=== PATIENT | female | born 1940 | race Caucasian/White ===

== ENCOUNTER 2017-09-01 10:58 | Emergency (ER) | payer MEDICARE ==
[2017-09-01 11:04] VITALS: RESP 18
[2017-09-01 12:02] LABS: Basophils % (A) 0 %; Eosinophils # (A) 0.2 k/uL (0-0.7); Eosinophils % (A) 3 %; HCT 41.7 % (34.0-46.0); HGB 13.9 gm/dL (11.4-16.0); Lymphocytes # (A) 2.3 k/uL (1.0-4.8); Lymphocytes % (A) 28 %; MCH 31.2 pg (25.0-35.0); MCHC 33.5 g/dL (31.0-37.0); MCV 93.3 fL (80.0-100.0); Mean Platelet Volume 7.4; Monocytes # (A) 0.4 k/uL (0-1.0); Monocytes % (A) 5 %; Neutrophils # (A) 5.2 k/uL (1.3-7.7); Neutrophils % (A) 63 %; Platelet Count 228 k/uL (150-450); RBC 4.47 m/uL (3.80-5.40); WBC 8.3 k/uL (3.8-10.6)
--- NOTE | 2017-09-01 12:08 | ED ---
General Adult HPI - General Chief complaint: Upper Respiratory Infection Stated complaint: CHEST CONSGESTION, BACK PAIN, COUGHING Time Seen by Provider: 09/01/17 11:16 Source: patient, RN notes reviewed Mode of arrival: wheelchair Limitations: no limitations - History of Present Illness Initial comments: Patient 76-year-old female presents into the emergency room today with a chief complaint cough congestion over the last 2 weeks. She does not that she followed up with family doctor was placed on antibiotics, steroids and a cough suppressant with no relief of the symptoms. She states she finished his medications 3 days ago. Patient does admit that yesterday she felt pain to her back coming from the chest. States when she coughs. When she coughs she experiences some pain. She states when she sitting still she has no pain she is pain-free. Patient denies any sputum production. She denies any other complaints or symptoms. Patient denies any recent fever, chills, shortness of breath, abdominal pain, nausea or vomiting, numbness or tingling, dysuria or hematuria, constipation or diarrhea, headaches or visual changes, or any other complaints. - Related Data Home Medications Medication Instructions Recorded Confirmed Aspirin [Adult Low Dose Aspirin EC] 81 mg PO BID 09/24/15 09/01/17 Atenolol [Tenormin] 50 mg PO DAILY 09/24/15 09/01/17 Calcium Carbonate/Vitamin D3 1 tab PO TID 09/24/15 09/01/17 [Calcium 600-Vit D3 400 Tablet] Levothyroxine Sodium [Synthroid] 88 mcg PO DAILY 09/24/15 09/01/17 Multivitamins, Thera [Multivitamin 1 tab PO DAILY 09/24/15 09/01/17 (formulary)] ALPRAZolam [Xanax] 0.25 mg PO DAILY PRN 02/24/16 09/01/17 Budesonide-Formot 160-4.5 Mcg 2 puff INHALATION RT-DAILY 02/24/16 09/01/17 [Symbicort 160-4.5 Mcg Inhaler] Fluticasone Nasal [place] [Flonase 2 spr EA NOSTRIL HS PRN 02/24/16 09/01/17 Nasal [place]] Clopidogrel [Plavix] 75 mg PO DAILY 09/01/17 09/01/17 Oxybutynin Chloride [Ditropan] 5 mg PO BID 09/01/17 09/01/17 Previous Rx's Medication Instructions Recorded Atorvastatin [Lipitor] 80 mg PO HS #30 tab 02/26/16 Losartan [Cozaar] 50 mg PO BID #60 tab 02/26/16 Nitroglycerin Sl Tabs [Nitrostat] 0.4 mg SUBLINGUAL Q5M PRN #25 tab 02/26/16 amLODIPine [Norvasc] 5 mg PO DAILY #30 tab 02/26/16 Albuterol Inhaler [Ventolin Hfa 1 - 2 puff INHALATION Q4-6H PRN #1 09/01/17 Inhaler] inhaler predniSONE 50 mg PO DAILY #5 tab 09/01/17 Allergies Allergy/AdvReac Type Severity Reaction Status Date / Time No Known Allergies Allergy Verified 09/01/17 11:35 Review of Systems ROS Statement: Those systems with pertinent positive or pertinent negative responses have been documented in the HPI. ROS Other: All systems not noted in ROS Statement are negative. Past Medical History Past Medical History: Deep Vein Thrombosis (DVT), Hyperlipidemia, Hypertension, Osteoarthritis (OA), Thyroid Disorder Additional Past Medical History / Comment(s): hiatal hernia, scratch on rt leg, urinary leakage, hiatal hernia, osteoporosis, History of Any Multi-Drug Resistant Organisms: None Reported Past Surgical History: Appendectomy, Bladder Surgery, Hernia Repair, Hysterectomy, Orthopedic Surgery Additional Past Surgical History / Comment(s): rt wrist carpal tunnel, rectocele , bladder suspension, left carotid endarterectomy, tawny cataracts, breast bx, Past Anesthesia/Blood Transfusion Reactions: No Reported Reaction Past Psychological History: No Psychological Hx Reported Smoking Status: Former smoker Past Alcohol Use History: Occasional Past Drug Use History: None Reported - Past Family History Daughter(s) Family Medical History: Cancer Mother Family Medical History: Cancer, Myocardial Infarction ([place]) Additional Family Medical History / Comment(s): lung disease Father Family Medical History: Diabetes Mellitus, Myocardial Infarction ([place]) Additional Family Medical History / Comment(s): at age 47 mi General Exam - General Exam Comments Initial Comments: General: The patient is awake and alert, in no distress, and does not appear acutely ill. Eye: Pupils are equal, round and reactive to light, extra-ocular movements are intact. No nystagmus. There is normal conjunctiva bilaterally. No signs of icterus. Ears, nose, mouth and throat: There are moist mucous membranes and no oral lesions. Neck: The neck is supple, there is no tenderness or JVD. Cardiovascular: There is a regular rate and rhythm. No murmur, rub or gallop is appreciated. Respiratory: Lungs are clear to auscultation, respirations are non-labored, breath sounds are equal. No wheezes, stridor, rales, or rhonchi. Musculoskeletal: Normal ROM, no tenderness. Strength 5/5. Sensation intact. Pulses equal bilaterally 2+. Neurological: A&O x 3. CN II-XII intact, There are no obvious motor or sensory deficits. Coordination appears grossly intact. Speech is normal. Skin: Skin is warm and dry and no rashes or lesions are noted. Psychiatric: Cooperative, appropriate mood & affect, normal judgment. Limitations: no limitations Course Vital Signs 09/01/17 09/01/17 09/01/17 11:00 13:12 13:23 Temperature 98 F Pulse Rate 71 72 76 Respiratory 18 Rate Blood Pressure 131/72 O2 Sat by Pulse 95 Oximetry EKG Findings - EKG Comments: EKG Findings:: EKG performed at 1143: Shows normal sinus rhythm at 60 bpm. MO interval 148. QRS 86. QT/QTc 432/432. Acute ST changes. Medical Decision Making - Medical Decision Making Patient reexamined at this time shows no signs of distress. She does not that she's had cough congestion for the past 2 weeks.Production. Patient does have recall. She's had coughing bouts at home. Patient states that only having pain when she coughs. No other complaints at this time. Breathing treatment did give her some improvement here in the emergency room. Her chest x-ray is negative for any sign of pneumonia. No other abnormalities. EKG shows normal sinus rhythm. Patient's labs reviewed unremarkable. Patient will be discharged home. Patient will be given a albuterol inhaler and also steroids for home with advise follow-up over the next 2 days return here to the emergency room symptoms increase or worsen or for any other concerns. - Lab Data Result diagrams: 09/01/17 11:53 09/01/17 11:53 Lab Results 09/01/17 09/01/17 09/01/17 Range/Units 11:53 11:53 11:53 WBC 8.3 (3.8-10.6) k/uL RBC 4.47 (3.80-5.40) m/uL Hgb 13.9 (11.4-16.0) gm/dL Hct 41.7 (34.0-46.0) % MCV 93.3 (80.0-100.0) fL MCH 31.2 (25.0-35.0) pg MCHC 33.5 (31.0-37.0) g/dL RDW 13.0 (11.5-15.5) % Plt Count 228 (150-450) k/uL Neutrophils % 63 % Lymphocytes % 28 % Monocytes % 5 % Eosinophils % 3 % Basophils % 0 % Neutrophils # 5.2 (1.3-7.7) k/uL Lymphocytes # 2.3 (1.0-4.8) k/uL Monocytes # 0.4 (0-1.0) k/uL Eosinophils # 0.2 (0-0.7) k/uL Basophils # 0.0 (0-0.2) k/uL PT (9.0-12.0) sec INR (<1.2) APTT (22.0-30.0) sec Sodium 143 (137-145) mmol/L Potassium 4.2 (3.5-5.1) mmol/L Chloride 107 (98-107) mmol/L Carbon Dioxide 25 (22-30) mmol/L Anion Gap 11 mmol/L BUN 23 H (7-17) mg/dL Creatinine 0.93 (0.52-1.04) mg/dL Est GFR (CKD-EPI)AfAm 70 (>60 ml/min/1.73 sqM) Est GFR (CKD-EPI)NonAf 60 (>60 ml/min/1.73 sqM) Glucose 94 (74-99) mg/dL Calcium 8.8 (8.4-10.2) mg/dL Total Bilirubin 0.7 (0.2-1.3) mg/dL AST 24 (14-36) U/L ALT 29 (9-52) U/L Alkaline Phosphatase 64 (38-126) U/L Total Creatine Kinase 45 (30-135) U/L CK-MB (CK-2) 1.5 (0.0-2.4) ng/mL CK-MB (CK-2) Rel Index 3.3 Troponin I <0.012 (0.000-0.034) ng/mL Total Protein 6.0 L (6.3-8.2) g/dL Albumin 3.7 (3.5-5.0) g/dL 09/01/17 Range/Units 11:53 WBC (3.8-10.6) k/uL RBC (3.80-5.40) m/uL Hgb (11.4-16.0) gm/dL Hct (34.0-46.0) % MCV (80.0-100.0) fL MCH (25.0-35.0) pg MCHC (31.0-37.0) g/dL RDW (11.5-15.5) % Plt Count (150-450) k/uL Neutrophils % % Lymphocytes % % Monocytes % % Eosinophils % % Basophils % % Neutrophils # (1.3-7.7) k/uL Lymphocytes # (1.0-4.8) k/uL Monocytes # (0-1.0) k/uL Eosinophils # (0-0.7) k/uL Basophils # (0-0.2) k/uL PT 10.1 (9.0-12.0) sec INR 1.0 (<1.2) APTT 22.6 (22.0-30.0) sec Sodium (137-145) mmol/L Potassium (3.5-5.1) mmol/L Chloride (98-107) mmol/L Carbon Dioxide (22-30) mmol/L Anion Gap mmol/L BUN (7-17) mg/dL Creatinine (0.52-1.04) mg/dL Est GFR (CKD-EPI)AfAm (>60 ml/min/1.73 sqM) Est GFR (CKD-EPI)NonAf (>60 ml/min/1.73 sqM) Glucose (74-99) mg/dL Calcium (8.4-10.2) mg/dL Total Bilirubin (0.2-1.3) mg/dL AST (14-36) U/L ALT (9-52) U/L Alkaline Phosphatase (38-126) U/L Total Creatine Kinase (30-135) U/L CK-MB (CK-2) (0.0-2.4) ng/mL CK-MB (CK-2) Rel Index Troponin I (0.000-0.034) ng/mL Total Protein (6.3-8.2) g/dL Albumin (3.5-5.0) g/dL Disposition Clinical Impression: Bronchospasm Disposition: HOME SELF-CARE Condition: Good Instructions: Bronchospasm (ED) Additional Instructions: Please use medication as discussed. Please follow-up with family doctor in the next 2 days of symptoms have not improved. Please return to emergency room if the symptoms increase or worsen or for any other concerns. Prescriptions: Albuterol Inhaler [Ventolin Hfa Inhaler] 1 - 2 puff INHALATION Q4-6H PRN #1 inhaler PRN Reason: Cough predniSONE 50 mg PO DAILY #5 tab Is patient prescribed a controlled substance at d/c from ED?: No Referrals: Joaquin Mccurdy MD [Primary Care Provider] - 1-2 days Time of Disposition: 14:01
--- NOTE | 2017-09-01 12:12 | XR ---
EXAMINATION TYPE: XR chest 2V DATE OF EXAM: 09/01/2017 COMPARISON: Chest x-ray February 24, 2016 HISTORY: Cough and congestion. TECHNIQUE: Frontal and lateral views of the chest are obtained. FINDINGS: There is chronic parenchymal change without suspicious focal air space opacity, pleural ef fusion, or pneumothorax seen. The cardiac silhouette size is stable and upper limits of normal with atherosclerotic change in thoracic aorta. The osseous structures are intact. IMPRESSION: Chronic changes without acute pulmonary process.
[2017-09-01 12:17] LABS: Albumin 3.7 g/dL (3.5-5.0); Calcium 8.8 mg/dL (8.4-10.2); Potassium 4.2 mmol/L (3.5-5.1); Total Bilirubin 0.7 mg/dL (0.2-1.3)
[2017-09-01 12:26] LABS: Creatine Kinase 45 U/L (30-135)
[2017-09-01 12:30] LABS: Partial Thromboplastin Time 22.6 sec (22.0-30.0); Prothrombin Time 10.1 sec (9.0-12.0)
[2017-09-01 12:40] LABS: Creatine Kinase MB 1.5 ng/mL (0.0-2.4); Troponin I <0.012 ng/mL (0.000-0.034)
[2017-09-01] MEDS ORDERED: IPRATROPIUM-ALBUTEROL 3 ML NEB INHALATION STA (12:55)
[2017-09-01 14:50] VITALS: BP 141/76; PULSE 68; TEMP 98.5
== END 2017-09-01 14:20 | disposition home or self-care (01) ==
LOC: EC 10:58
DX: J98.01 Acute bronchospasm (principal); M54.9 Dorsalgia, unspecified; E78.5 Hyperlipidemia, unspecified; I10 Essential (primary) hypertension; E07.9 Disorder of thyroid, unspecified; Z87.891 Personal history of nicotine dependence; Z79.01 Long term (current) use of anticoagulants; Z79.51 Long term (current) use of inhaled steroids; Z79.899 Other long term (current) drug therapy; Z79.82 Long term (current) use of aspirin; Z86.718 Personal history of other venous thrombosis and embolism; Z83.6 Family history of other diseases of the respiratory system
CPT/HCPCS: 36415; 71046; 80053; 82550; 82553; 84484; 85025; 85610; 85730; 93005; 94640; 99284

== ENCOUNTER → 2022-05-11 | Day surgery (SDC) | payer MEDICARE ==
[2022-05-06 14:22] VITALS: BMI 25.8
[~2022-05-11] MED LIST: ALPRAZolam 0.25 MG TAB PO PRN; ALPRAZolam 0.5 MG TAB PO PRN; ASPIRIN 325 MG TAB PO STA; ASPIRIN 81 MG PO SCH; ATORVASTATIN 40 MG TAB PO SCH; ATORVASTATIN 80 MG TAB PO STA; CALCIUM CARB-VIT D 500 MG-5 MCG TAB PO SCH; CHOLECALCIFEROL 125 MCG (5000 IU) TABLET PO SCH; ESTER C PO SCH; EZETIMIBE 10 MG TAB PO SCH; FLUTICASONE 50MCG/SPRAY NASAL 16GM EA NOSTRIL PRN; HEPARIN SODIUM 1,000 UN/ML (10ML VL) IVP ONE; HEPARIN SODIUM 1,000 UN/ML (10ML VL) ONE; HEPARIN SODIUM,PORCINE 10,000 UNIT in SODIUM CHLORIDE 0.9% 1,000 ML IRRIGATION PRN; HEPARIN SODIUM,PORCINE 2,500 UNIT in SODIUM CHLORIDE 0.9% 250 ML IRRIGATION PRN; IOPAMIDOL-370 125ML BTL INJ ONE; LEVOTHYROXINE 88 MCG TAB PO SCH; LIDOCAINE 1% INJ 10MG/ML (30 ML VIAL-PF) SQ ONE; LOSARTAN 50 MG TAB PO SCH; MONTELUKAST 10 MG TAB PO SCH; MULTIVITAMINS, THERA 1 EACH TAB PO SCH; NITROGLYCERIN SL TABS 0.4 MG TAB SUBLINGUAL PRN; OXYBUTYNIN CHLORIDE 5 MG TAB PO SCH; RX INFO: IV CONTRAST WAS GIVEN 1 EACH MISC MISCELLANE PRN; SODIUM CHLORIDE 0.9% 1,000 ML IV ONE; SODIUM CHLORIDE 0.9% 1,000 ML IV SCH; SODIUM CHLORIDE 0.9% 1,000 ML in EMPTY BAG 1 BAG IV SCH; SYMBICORT 160-4.5 MCG INHALER INHALATION PRN; VERAPAMIL 2.5 MG/ML 2 ML AMP ONE; ZINC SULFATE 220 MG CAP PO SCH; amLODIPine 5 MG TAB PO SCH; atenoloL 50 MG TAB PO SCH; fentaNYL (PF) 50 MCG/ML 2 ML AMP IVP ONE; fentaNYL (PF) 50 MCG/ML 2 ML AMP ONE
[2022-05-11 06:36] VITALS: RESP 16; TEMP 98.7
[2022-05-11 06:43] LABS: Basophils # (A) 0.1 k/uL (0-0.2); Basophils % (A) 1 %; Eosinophils # (A) 0.2 k/uL (0-0.7); Eosinophils % (A) 4 %; HGB 14.7 gm/dL (11.4-16.0); Lymphocytes # (A) 2.1 k/uL (1.0-4.8); Lymphocytes % (A) 38 %; MCH 32.4 pg (25.0-35.0); MCHC 34.1 g/dL (31.0-37.0); MCV 94.8 fL (80.0-100.0); Mean Platelet Volume 7.7; Monocytes # (A) 0.3 k/uL (0-1.0); Monocytes % (A) 6 %; Neutrophils # (A) 2.8 k/uL (1.3-7.7); Neutrophils % (A) 50 %; Platelet Count 228 k/uL (150-450); RBC 4.54 m/uL (3.80-5.40); RDW 12.7 % (11.5-15.5); WBC 5.6 k/uL (3.8-10.6)
[2022-05-11 06:54] LABS: Calcium 9.8 mg/dL (8.4-10.2); Potassium 4.2 mmol/L (3.5-5.1)
--- NOTE | 2022-05-11 08:02 | P.CARDCATH ---
Date of Procedure: 05/11/22 Description of Procedure: Cardiac Catheterization: The patient is an 81-year-old female with history of hypertension, hyperlipidemia and prior PCI who has been complaining of chest discomfort. She had an abnormal MPI. Recommendations were made regarding cardiac catheterization, the risks and the complications were discussed with the patient who is in full understanding and agreement. Procedure Description: Patient was brought to senior label specialist in fasting semi-sedated state after receiving Fentanyl and Benadryl achieiving moderate conscious sedated state. Using Xylocaine Anesthesia and Seldinger technique, a 6-[place]iopian sheath was introduced in the right radial artery . Subsequently, selective coronary angiography was performed using a 5-Ethiopian 3.5 bend Phillip catheter. Multiple views of the coronary artery including hemiaxial views were obtained. The 5-Ethiopian pigtail catheter was used to cross the aortic valve and LVEDP was calculated. Following that, catheter and sheath were removed. Hemostasis was obtained with deployment of TR band . There was no immediate complication. Patient was returned to room in stable condition. Of note, the patient received a total of 4000 units of intravenous heparin as well as intra-arterial verapamil. Findings: Fluoroscopy: Calcifications involving the LAD, left circumflex and RCA were noted Left main: This is a large size vessel, bifurcating into LAD and left circumflex, the distal left main has a 20% plaque LAD: This is a large size vessel, calcified, reaching to the apex, giving rise to 3 diagonal branch of small to moderate caliber, the LAD has mild disease of 10-20% with no high-grade stenosis Left circumflex: This is a large nondominant vessel, giving rise to 3 obtuse marginal branch. The left circumflex has mild intimal disease of 20% throughout its course with no high-grade stenosis RCA: This is a large dominant vessel, bifurcating distally to the PDA and PLV. The proximal RCA has a 30% plaque, the stented segment beyond that is patent with no significant in-stent restenosis Left Ventriculogram: There was no gradient across the aortic valve Hemodynamics: Was not performed , LVEDP was 14-16 mmHg Conclusion: 1. Calcified coronary arteries 2. Patent RCA stent 3. Mild disease in the RCA, LAD and left circumflex 4. Right dominance Recommendations: I have recommended to continue medical therapy with the aggressive coronary risks modifications. The findings and the recommendations were discussed with the patient and the family and they were in full understanding and agreement. Duration of sedation is 16 minutes.
[2022-05-11 12:09] VITALS: BP 131/60; PULSE 60
== END | disposition home or self-care (01) ==
LOC: CATHCVL 05:57
PROVIDERS: ATTEND Internal Medicine Interventional Cardiology
DX: I25.10 Atherosclerotic heart disease of native coronary artery without angina pectoris (principal); Z95.5 Presence of coronary angioplasty implant and graft; I10 Essential (primary) hypertension; E78.5 Hyperlipidemia, unspecified; R92.1 Mammographic calcification found on diagnostic imaging of breast; Z79.82 Long term (current) use of aspirin; Z79.02 Long term (current) use of antithrombotics/antiplatelets; I99.8 Other disorder of circulatory system; F17.210 Nicotine dependence, cigarettes, uncomplicated; Z82.49 Family history of ischemic heart disease and other diseases of the circulatory system; I73.9 Peripheral vascular disease, unspecified; F10.20 Alcohol dependence, uncomplicated; Z98.890 Other specified postprocedural states; E78.00 Pure hypercholesterolemia, unspecified; Z79.899 Other long term (current) drug therapy; Z79.891 Long term (current) use of opiate analgesic; Z79.810 Long term (current) use of selective estrogen receptor modulators (SERMs)
CPT/HCPCS: 93458; 80048; 85025; C1769 ×2; C1894; J2001; J3010; J1644; Q9967

== ENCOUNTER → 2023-01-07 | Outpatient (CLI) | payer MEDICARE ==
--- NOTE | 2023-01-11 08:09 | MM ---
Reason for Exam: Screening (asymptomatic). Last mammogram was performed 4 year(s) and 0 month(s) ago. Patient History: Menarche at age 13. First Full-Term at age 18. Left ovary removed at age 37. Right ovary removed at age 37. Hysterectomy at age 37. Postmenopausal. 1979, Excisional Biopsy on the Left side. Excisional Biopsy on the Left side. Risk Values: Candy 5 year model risk: 1.7%. NCI Lifetime model risk: 2.3%. Tissue Density: The breast tissue is heterogeneously dense. This may lower the sensitivity of mammography. Findings: Analyzed By CAD. There is no suspicious group of microcalcifications or new suspicious mass. Benign-appearing calcifications bilaterally. Overall Assessment: Benign, BI-RAD 2 Management: Screening Mammogram of both breasts in [address] [facility] will attempt to contact patient to return for supplemental views and ultrasound if indicated. Patient should continue monthly self-breast exams. A clinical breast exam by your physician is recommended on an annual basis. This exam should not preclude additional follow-up of suspicious palpable abnormalities. Note on Candy scores and lifetime risk: 1. A Candy score greater than 3% is considered moderate risk. If this is the case, consider specialist referral to assess eligibility for a risk reducing agent. 2. If overall lifetime risk for the development of breast cancer is 20% or higher, the patient may qualify for future screening with alternating mammogram and breast MRI. Electronically signed and approved by: Nadeem Sanchez DO
== END | disposition home or self-care (01) ==
LOC: RADMAMWWP 16:21
PROVIDERS: ATTEND Family Medicine
DX: Z12.31 Encounter for screening mammogram for malignant neoplasm of breast (principal); Z78.0 Asymptomatic menopausal state
CPT/HCPCS: 77063; 77067

== ENCOUNTER 2023-04-16 11:20 | Emergency (ER) | payer MEDICARE ==
[2023-04-16 12:12] VITALS: TEMP 98.4
--- NOTE | 2023-04-16 12:40 | CT ---
EXAMINATION TYPE: CT brain wo con DATE OF EXAM: 04/16/2023 COMPARISON: None available. HISTORY: Trauma. CT DLP: 1095.4 mGycm Automated exposure control for dose reduction was used. FINDINGS: There is no acute intracranial hemorrhage, mass, mass effect, midline shift, extra-axial fluid collec tion or hydrocephalus. There is mild hypoattenuation the periventricular white matter which likely relates to chronic ischem ic small vessel change. The brady-white distinction is otherwise intact without evidence of an acute m ajor vessel infarct. There is a small amount of soft tissue swelling in the right frontal parietal region. IMPRESSION: 1. NO ACUTE INTRACRANIAL PROCESS. 2. MILD SOFT TISSUE SWELLING IN THE RIGHT FRONTAL PARIETAL REGION
--- NOTE | 2023-04-16 12:45 | ED ---
Head Injury HPI - General Chief complaint: Head Injury Stated complaint: head injury Time Seen by Provider: 04/16/23 11:41 Source: patient, RN notes reviewed Mode of arrival: ambulatory Limitations: no limitations - History of Present Illness Initial comments: 8-year-old female sent emergency Department chief complaint of a head injury. Patient states that she was getting a office shelf high above her. She states it rolled off striking her head and she states is a metal cooking pot. Patient states that she has bruising, pain in her frontal aspect of her head. - Related Data Home Medications Medication Instructions Recorded Confirmed Aspirin [Adult Low Dose Aspirin EC] 81 mg PO BID 09/24/15 05/11/22 Calcium Carbonate/Vitamin D3 600 mg PO BID 09/24/15 05/11/22 [Calcium 600-Vit D3 400 Tablet] Levothyroxine Sodium [Synthroid] 88 mcg PO DAILY 09/24/15 05/11/22 Multivitamins, Thera [Multivitamin 1 tab PO DAILY 09/24/15 05/11/22 (formulary)] atenoloL [Tenormin] 50 mg PO DAILY 09/24/15 05/11/22 ALPRAZolam [Xanax] 0.25 mg PO DAILY PRN 02/24/16 05/06/22 Budesonide-Formot 160-4.5 Mcg 2 puff INHALATION RT-DAILY PRN 02/24/16 05/06/22 [Symbicort 160-4.5 Mcg Inhaler] Fluticasone Nasal [place] [Flonase 2 spr EA NOSTRIL HS PRN 02/24/16 05/06/22 Nasal [place]] oxyBUTYnin chloride [Ditropan] 5 mg PO BID 09/01/17 05/11/22 Atorvastatin [Lipitor] 40 mg PO HS 05/06/22 05/11/22 Cholecalciferol [Vitamin D3 (25 125 mcg PO DAILY 05/06/22 05/11/22 Mcg = 1000 Iu)] Katie C 1 tab PO DAILY 05/06/22 05/11/22 Ezetimibe [Zetia] 10 mg PO DAILY 05/06/22 05/11/22 Montelukast Sodium [Singulair] 10 mg PO HS 05/06/22 05/11/22 Zinc Gluconate [Zinc] 25 mg PO DAILY 05/06/22 05/11/22 amLODIPine [Norvasc] 5 mg PO BID 05/06/22 05/11/22 Previous Rx's Medication Instructions Recorded Losartan [Cozaar] 50 mg PO BID #60 tab 02/26/16 Nitroglycerin Sl Tabs [Nitrostat] 0.4 mg SUBLINGUAL Q5M PRN #25 tab 02/26/16 Allergies/Adverse reactions: Allergies Allergy/AdvReac Type Severity Reaction Status Date / Time No Known Allergies Allergy Verified 04/16/23 11:30 Review of Systems ROS Statement: Those systems with pertinent positive or pertinent negative responses have been documented in the HPI. ROS Other: All systems not noted in ROS Statement are negative. Past Medical History Past Medical History: Coronary Artery Disease (CAD), Deep Vein Thrombosis (DVT), Hyperlipidemia, Hypertension, Myocardial Infarction ([place]), Osteoarthritis (OA), Thyroid Disorder Additional Past Medical History / Comment(s): recent chest pain, hiatal hernia, urinary leakage, hiatal hernia, osteoporosis, dvt leg 60 yrs ago. Last Myocardial Infarction Date:: 2015 History of Any Multi-Drug Resistant Organisms: None Reported Past Surgical History: Appendectomy, Bladder Surgery, Heart Catheterization With Stent, Hernia Repair, Hysterectomy, Orthopedic Surgery Additional Past Surgical History / Comment(s): rt wrist carpal tunnel, rectocele, bladder suspension, left carotid endarterectomy, tawny cataracts, breast bx,heart stents x2 Past Anesthesia/Blood Transfusion Reactions: No Reported Reaction Additional Past Anesthesia/Blood Transfusion Reaction / Comment(s): no hx blood transfusion Date of Last Stent Placement:: 2015 Past Psychological History: No Psychological Hx Reported Smoking Status: Former smoker Past Alcohol Use History: None Reported Past Drug Use History: None Reported - Past Family History Daughter(s) Family Medical History: Cancer Additional Family Medical History / Comment(s): past away with CA at age 36. #2 dtr had CABG at age 63-3 vessels Mother Family Medical History: Cancer, Myocardial Infarction ([place]) Additional Family Medical History / Comment(s): lung disease Father Family Medical History: Diabetes Mellitus, Myocardial Infarction ([place]) Additional Family Medical History / Comment(s): at age 47 mi Brother(s) Additional Family Medical History / Comment(s): at age 51 unk cause General Exam Limitations: no limitations General appearance: alert, in no apparent distress Head exam: Present: atraumatic, normocephalic. Absent: normal inspection (Right frontal ecchymosis noted) Eye exam: Present: normal appearance, PERRL, EOMI. Absent: scleral icterus, conjunctival injection, periorbital swelling ENT exam: Present: normal exam, normal oropharynx, mucous membranes moist Neck exam: Present: normal inspection, full ROM. Absent: tenderness, meningismus, lymphadenopathy Respiratory exam: Present: normal lung sounds bilaterally. Absent: respiratory distress, wheezes, rales, rhonchi, stridor Cardiovascular Exam: Present: regular rate, normal rhythm, normal heart sounds. Absent: systolic murmur, diastolic murmur, rubs, gallop, clicks Course Vital Signs 04/16/23 11:27 Temperature 98.4 F Pulse Rate 72 Respiratory 20 Rate Blood Pressure 154/71 O2 Sat by Pulse 96 Oximetry Medical Decision Making - Medical Decision Making Was pt. sent in by a medical professional or institution (, PA, STEAM OVEN OPERATOR, urgent care, hospital, or halfway...) When possible be specific @ -No Did you speak to anyone other than the patient for history (EMS, parent, family, police, friend...)? What history was obtained from this source @ -No Did you review nursing and triage notes (agree or disagree)? Why? @ -I reviewed and agree with nursing and triage notes Were old charts reviewed (outside hosp., previous admission, EMS record, old EKG, old radiological studies, urgent care reports/EKG's, halfway records)? Report findings @ -No old charts were reviewed Differential Diagnosis (chest pain, altered mental status, abdominal pain women, abdominal pain men, vaginal bleeding, weakness, fever, dyspnea, syncope, headache, dizziness, GI bleed, back pain, seizure, CVA, palpatations, mental health, musculoskeletal)? @ -Scalp contusion, closed head injury EKG interpreted by me (3pts min.). @ -None X-rays interpreted by me (1pt min.). @ -None done CT interpreted by me (1pt min.). @ -CT brain shows no acute intracranial hemorrhage there is soft tissue swelling noted U/S interpreted by me (1pt. min.). @ -None done What testing was considered but not performed or refused? (CT, X-rays, U/S, labs)? Why? @ -None What meds were considered but not given or refused? Why? @ -None Did you discuss the management of the patient with other professionals (professionals i.e. , PA, STEAM OVEN OPERATOR, lab, RT, psych nurse, social media sr strategy manager, manager news, teacher, chief fundraising officer, family caseworker)? Give summary @ -No Was smoking cessation discussed for >3mins.? @ -No Was critical care preformed (if so, how long)? @ -No Were there social determinants of health that impacted care today? How? (Homelessness, low income, unemployed, alcoholism, drug addiction, transportation, low edu. Level, literacy, decrease access to med. care, custodial, rehab)? @ -No Was there de-escalation of care discussed even if they declined (Discuss DNR or withdrawal of care, Hospice)? DNR status @ -No What co-morbidities impacted this encounter? (DM, HTN, Smoking, COPD, CAD, Cancer, CVA, ARF, Chemo, Hep., AIDS, mental health diagnosis, sleep apnea, morbid obesity)? @ -None Was patient admitted / discharged? Hospital course, mention meds given and route, prescriptions, significant lab abnormalities, going to OR and other pertinent info. @ -Discharge CT was negative for intracranial hemorrhage patient is discharged in stable condition she is not intact. Undiagnosed new problem with uncertain prognosis? @ -No Drug Therapy requiring intensive monitoring for toxicity (Heparin, Nitro, Insulin, Cardizem)? @ -No Were any procedures done? @ -No Diagnosis/symptom? @ -Scalp contusion Acute, or Chronic, or Acute on Chronic? @ -Acute Uncomplicated (without systemic symptoms) or Complicated (systemic symptoms)? @ -Uncomplicated. Side effects of treatment? @ -No Exacerbation, Progression, or Severe Exacerbation? @ -No Poses a threat to life or bodily function? How? (Chest pain, [place], [place], pneumonia, PE, COPD, DKA, ARF, appy, cholecystitis, CVA, Diverticulitis, Homicidal, Suicidal, threat to staff... and all critical care pts) @ -No Disposition Clinical Impression: Contusion of scalp Disposition: HOME SELF-CARE Condition: Stable Instructions (If sedation given, give patient instructions): Head Injury (ED) Additional Instructions: Please return to the Emergency Department if symptoms worsen or any other concerns. Is patient prescribed a controlled substance at d/c from ED?: No Referrals: Joaquin Mccurdy MD [Primary Care Provider] - 1-2 days Time of Disposition: 12:45
[2023-04-16 13:27] VITALS: BP 157/72; PULSE 70; RESP 16
== END 2023-04-16 13:09 | disposition home or self-care (01) ==
LOC: EC 11:20
DX: S00.03XA Contusion of scalp, initial encounter (principal); I25.10 Atherosclerotic heart disease of native coronary artery without angina pectoris; E78.5 Hyperlipidemia, unspecified; I10 Essential (primary) hypertension; I25.2 Old myocardial infarction; M19.90 Unspecified osteoarthritis, unspecified site; Z87.891 Personal history of nicotine dependence; Z79.82 Long term (current) use of aspirin; Z79.1 Long term (current) use of non-steroidal anti-inflammatories (NSAID); Z79.890 Hormone replacement therapy; W22.8XXA Striking against or struck by other objects, initial encounter
CPT/HCPCS: 70450; 99283

== ENCOUNTER 2024-01-01 20:59 | Emergency (ER) | payer MEDICARE ==
[2024-01-01 21:14] VITALS: RESP 18; TEMP 98
--- NOTE | 2024-01-01 21:48 | ED ---
Fall HPI - General Chief Complaint: Fall Stated Complaint: Fall-left shoulder injury Time Seen by Provider: 01/01/24 21:47 Source: patient Mode of arrival: ambulatory - History of Present Illness Initial Comments: 83-year-old female presenting for evaluation post fall. Patient tripped on her 's oxygen at home and fell onto her right arm. She is having shoulder and wrist pain. She also has a hematoma and superficial laceration to the right forearm. Does not know when her last tetanus shot was. She did hit her head but states she had no loss of consciousness. She is on no blood thinners. No nausea, vomiting, dizziness, chest pain, difficulty breathing, headache, neck pain, numbness, tingling, weakness - Related Data Home Medications Medication Instructions Recorded Confirmed Aspirin [Adult Low Dose Aspirin EC] 81 mg PO BID 09/24/15 05/11/22 Calcium Carbonate/Vitamin D3 600 mg PO BID 09/24/15 05/11/22 [Calcium 600-Vit D3 400 Tablet] Levothyroxine Sodium [Synthroid] 88 mcg PO DAILY 09/24/15 05/11/22 Multivitamins, Thera [Multivitamin 1 tab PO DAILY 09/24/15 05/11/22 (formulary)] atenoloL [Tenormin] 50 mg PO DAILY 09/24/15 05/11/22 ALPRAZolam [Xanax] 0.25 mg PO DAILY PRN 02/24/16 05/06/22 Budesonide-Formot 160-4.5 Mcg 2 puff INHALATION RT-DAILY PRN 02/24/16 05/06/22 [Symbicort 160-4.5 Mcg Inhaler] Fluticasone Nasal [place] [Flonase 2 spr EA NOSTRIL HS PRN 02/24/16 05/06/22 Nasal [place]] oxyBUTYnin chloride [Ditropan] 5 mg PO BID 09/01/17 05/11/22 Atorvastatin [Lipitor] 40 mg PO HS 05/06/22 05/11/22 Cholecalciferol [Vitamin D3 (25 125 mcg PO DAILY 05/06/22 05/11/22 Mcg = 1000 Iu)] Katie C 1 tab PO DAILY 05/06/22 05/11/22 Ezetimibe [Zetia] 10 mg PO DAILY 05/06/22 05/11/22 Montelukast Sodium [Singulair] 10 mg PO HS 05/06/22 05/11/22 Zinc Gluconate [Zinc] 25 mg PO DAILY 05/06/22 05/11/22 amLODIPine [Norvasc] 5 mg PO BID 05/06/22 05/11/22 Previous Rx's Medication Instructions Recorded Losartan [Cozaar] 50 mg PO BID #60 tab 02/26/16 Nitroglycerin Sl Tabs [Nitrostat] 0.4 mg SUBLINGUAL Q5M PRN #25 tab 02/26/16 Allergies Allergy/AdvReac Type Severity Reaction Status Date / Time No Known Allergies Allergy Verified 01/01/24 21:14 Review of Systems ROS Statement: Those systems with pertinent positive or pertinent negative responses have been documented in the HPI. ROS Other: All systems not noted in ROS Statement are negative. Past Medical History Past Medical History: Coronary Artery Disease (CAD), Deep Vein Thrombosis (DVT), Hyperlipidemia, Hypertension, Myocardial Infarction ([place]), Osteoarthritis (OA), Thyroid Disorder Additional Past Medical History / Comment(s): recent chest pain, hiatal hernia, urinary leakage, hiatal hernia, osteoporosis, dvt leg 60 yrs ago. Last Myocardial Infarction Date:: 2015 History of Any Multi-Drug Resistant Organisms: None Reported Past Surgical History: Appendectomy, Bladder Surgery, Heart Catheterization With Stent, Hernia Repair, Hysterectomy, Orthopedic Surgery Additional Past Surgical History / Comment(s): rt wrist carpal tunnel, rectocele, bladder suspension, left carotid endarterectomy, tawny cataracts, breast bx,heart stents x2 Past Anesthesia/Blood Transfusion Reactions: No Reported Reaction Additional Past Anesthesia/Blood Transfusion Reaction / Comment(s): no hx blood transfusion Date of Last Stent Placement:: 2015 Past Psychological History: No Psychological Hx Reported Smoking Status: Former smoker Past Alcohol Use History: None Reported Past Drug Use History: None Reported - Past Family History Daughter(s) Family Medical History: Cancer Additional Family Medical History / Comment(s): past away with CA at age 36. #2 dtr had CABG at age 63-3 vessels Mother Family Medical History: Cancer, Myocardial Infarction ([place]) Additional Family Medical History / Comment(s): lung disease Father Family Medical History: Diabetes Mellitus, Myocardial Infarction ([place]) Additional Family Medical History / Comment(s): at age 47 mi Brother(s) Additional Family Medical History / Comment(s): at age 51 unk cause General Exam - General Exam Comments Initial Comments: Visual Physical Exam Vital signs reviewed General: Well-appearing, nontoxic, no acute distress. Head: Normocephalic, atraumatic Eyes: PERRLA, EOMI ENT: Airway patent Chest: Nonlabored breathing Skin: No visual rash, normal skin tone Neuro: Alert and oriented 3 Musculoskeletal: Hematoma with laceration right forearm Limitations: no limitations General appearance: alert, in no apparent distress Head exam: Present: atraumatic, normocephalic Eye exam: Present: normal appearance, EOMI Neck exam: Present: normal inspection. Absent: meningismus Respiratory exam: Present: normal lung sounds bilaterally. Absent: respiratory distress, wheezes, rales, rhonchi, stridor Cardiovascular Exam: Present: regular rate, normal rhythm, normal heart sounds. Absent: systolic murmur, diastolic murmur, rubs, gallop, clicks Right Forearm Wrist exam: Present: tenderness, swelling, laceration (superficial), ecchymosis. Absent: full ROM Left Shoulder Exam: Present: normal inspection, tenderness. Absent: full ROM Forearm Wrist exam: Present: normal inspection, tenderness. Absent: full ROM Neurological exam: Present: alert, oriented X3 Expanded Patient oriented to: Present: person, place, time Speech: Present: fluid speech Cranial nerves: EOM's Intact: Normal Eye Response: (4) open spontaneously Motor Response: (6) obeys commands Verbal Response: (5) oriented [place] Total: 15 Psychiatric exam: Present: normal affect, normal mood Expanded Type of lesion: Present: laceration (Hematoma superficial laceration right forearm) Course Vital Signs 01/01/24 01/02/24 21:09 00:57 Temperature 98 F Pulse Rate 70 69 Respiratory 18 18 Rate Blood Pressure 177/77 159/69 O2 Sat by Pulse 95 98 Oximetry Medical Decision Making - Medical Decision Making I performed the quick note portion of this visit, electronically signed Shraddha Locke PA-C Was pt. sent in by a medical professional or institution ([facility], [facility], urgent care, hospital, or snf...) When possible be specific @ -No Did you speak to anyone other than the patient for history (EMS, parent, family, police, friend...)? What history was obtained from this source @ -No Did you review nursing and triage notes (agree or disagree)? Why? @ -I reviewed and agree with nursing and triage notes Were old charts reviewed (outside hosp., previous admission, EMS record, old EKG, old radiological studies, urgent care reports/EKG's, snf records)? Report findings @ -No old charts were reviewed Differential Diagnosis (chest pain, altered mental status, abdominal pain women, abdominal pain men, vaginal bleeding, weakness, fever, dyspnea, syncope, headache, dizziness, GI bleed, back pain, seizure, CVA, palpatations, mental health, musculoskeletal)? @ -Differential Musculoskeletal Muscular strain, contusion, ligament sprain, fracture, arthritis, septic arthritis, bursitis, cellulitis, muscle spasm, nerve compression, DVT, arterial occlusion, herpes zoster, electrolyte abnormality, tumor.... This is not meant to be in all inclusive list EKG interpreted by me (3pts min.). @ -As above X-rays interpreted by me (1pt min.). @ -X-ray left shoulder shows old healed proximal humeral fracture. No acute fracture or dislocation X-ray left wrist no evidence of acute fracture or dislocation. Degenerative changes greatest at the first CMC joint CT interpreted by me (1pt min.). @ -CT shows no no acute intracranial abnormality. No significant cervical vertebral abnormalities posttrauma U/S interpreted by me (1pt. min.). @ -None done What testing was considered but not performed or refused? (CT, X-rays, U/S, labs)? Why? @ -None What meds were considered but not given or refused? Why? @ -None Did you discuss the management of the patient with other professionals (professionals i.e. , PA, [facility], lab, RT, psych nurse, oncology social worker, rail flaw detector operator, teacher, consumer loan officer, case supervisor)? Give summary @ -No Was smoking cessation discussed for >3mins.? @ -No Was critical care preformed (if so, how long)? @ -No Were there social determinants of health that impacted care today? How? (Homelessness, low income, unemployed, alcoholism, drug addiction, transportation, low edu. Level, literacy, decrease access to med. care, halfway, rehab)? @ -No Was there de-escalation of care discussed even if they declined (Discuss DNR or withdrawal of care, Hospice)? DNR status @ -No What co-morbidities impacted this encounter? (DM, HTN, Smoking, COPD, CAD, Cancer, CVA, ARF, Chemo, Hep., AIDS, mental health diagnosis, sleep apnea, morbid obesity)? @ -None Was patient admitted / discharged? Hospital course, mention meds given and route, prescriptions, significant lab abnormalities, going to OR and other pertinent info. @ -83-year-old female presenting for evaluation post fall. Positive head injury with no loss of consciousness or blood thinners. Pain to the left shoulder left wrist, large hematoma with superficial laceration to right forearm. X-ray showed no acute fracture or dislocation. Negative CT of the brain and cervical spine. Laceration was repaired using Exofin. Patient was educated on supportive management of her injuries. Discharged home. Follow-up with PCP. Report back to ER with any new or worsening symptoms. Discussed return parameters and answered all questions. Patient conveyed verbal understanding and agreed to the plan. I discussed this case in detail with my attending Dr. Rivers Undiagnosed new problem with uncertain prognosis? @ -No Drug Therapy requiring intensive monitoring for toxicity (Heparin, Nitro, Insulin, Cardizem)? @ -No Were any procedures done? @ -Laceration repair Diagnosis/symptom? @ -Fall, head injury, hematoma, laceration Acute, or Chronic, or Acute on Chronic? @ -Acute Uncomplicated (without systemic symptoms) or Complicated (systemic symptoms)? @ -Uncomplicated Side effects of treatment? @ -No Exacerbation, Progression, or Severe Exacerbation? @ -No Poses a threat to life or bodily function? How? (Chest pain, [place], [place], pneumonia, PE, COPD, DKA, ARF, appy, cholecystitis, CVA, Diverticulitis, Homicidal, Suicidal, threat to staff... and all critical care pts) @ -Unlikely Disposition Clinical Impression: Fall, Head injury, Laceration, Hematoma Disposition: HOME SELF-CARE Condition: Good Instructions (If sedation given, give patient instructions): Laceration (ED), Head Injury (ED), Skin Adhesive Care (ED) Additional Instructions: Follow-up with PCP. Report back to ER with any new or worsening symptoms, including but not limited to nausea, vomiting, dizziness, confusion, syncope. Monitor for signs of infection, including but not limited to redness, swelling, pain, discharge, fever, chills. Keep the wound clean and dry and covered. Avoid fully submerging the wound. Clean with soap and water. Do not apply Neosporin or other ointment-based products as this will break down the skin adhesive. Is patient prescribed a controlled substance at d/c from ED?: No Referrals: Joaquin Mccurdy MD [Primary Care Provider] - 1-2 days Time of Disposition: 00:47
--- NOTE | 2024-01-01 23:36 | XR ---
EXAMINATION TYPE: XR shoulder complete LT DATE OF EXAM: 01/01/2024 9:31 PM CLINICAL INDICATION:Female, 83 years old with history of fall; [facility] COMPARISON: CT left shoulder 08/15/2013 TECHNIQUE: XR shoulder complete LT; shoulder was examined in AP, internally rotated and scapular Y p rojections. FINDINGS: Bones appear somewhat osteopenic. Mild/moderate degenerative changes of the glenohumeral and acromioc lavicular joints. There is deformity of the proximal humerus which appears to reflect chronic sequela of healed fracture (which was acute in 2013). No acute fracture lucency or dislocation is seen. IMPRESSION: Old healed proximal humeral fracture. No acute fracture or dislocation.
--- NOTE | 2024-01-01 23:39 | XR ---
EXAMINATION TYPE: XR wrist complete LT DATE OF EXAM: 01/01/2024 9:32 PM CLINICAL INDICATION:Female, 83 years old with history of fall; H COMPARISON: None. TECHNIQUE: 4 views left wrist FINDINGS: Osseous mineralization appears diminished. There is moderate degenerative change at the first carpome tacarpal joint with apparently mild subluxation but not dislocation. Milder degenerative changes else where. No acute fractures are seen. Grossly unremarkable soft tissues. IMPRESSION: No evidence of acute fracture or dislocation. Degenerative changes, greatest at the first CMC joint.
--- NOTE | 2024-01-01 23:55 | CT ---
EXAM: CT Head Without Intravenous Contrast CLINICAL HISTORY: ITS.REASON CT Reason: head injury TECHNIQUE: Axial computed tomography images of the head/brain without intravenous contrast. CTDI is 45.2 mGy and DLP is 993.8 mGy-cm. This CT exam was performed using one or more of the following dose reduction techniques: automated exposure control, adjustment of the mA and/or kV according to patient size, and/or use of iterative reconstruction technique. COMPARISON: CT brain: 04/16/2023. FINDINGS: Motion-induced image degradation. Brain: No acute intracranial hemorrhage, mass-effect or midline shift. No extra-axial acute fluid collections. Mild/moderate age-related cerebral atrophy with widening of the extra- axial spaces. A small focal zones with decreased density in the right subinsular cortex, old ischemic injury. There are areas of decreased attenuation within the white matter tracts, compatible with chronic microvascular disease changes. Bones/joints: Unremarkable. No acute fracture. Soft tissues: Unremarkable. Sinuses: Unremarkable as visualized. No acute sinusitis. Mastoid air cells: Unremarkable as visualized. No mastoid effusion. IMPRESSION: No acute intracranial abnormality noted. . EXAM: CT Cervical Spine Without Intravenous Contrast CLINICAL HISTORY: ITS.REASON CT Reason: head injury TECHNIQUE: Axial computed tomography images of the cervical spine without intravenous contrast. CTDI is 88.9 mGy and DLP is 244.1 mGy-cm. This CT exam was performed using one or more of the following dose reduction techniques: automated exposure control, adjustment of the mA and/or kV according to patient size, and/or use of iterative reconstruction technique. COMPARISON: No relevant prior studies available. FINDINGS: Vertebrae: Normal alignment of the spine. No acute fracture. Discs/spinal canal/neural foramina: C4-C7 mild/moderate degenerative spondylitic changes with variable degrees of neural foraminal/central canal stenosis. Soft tissues: Visualized lungs: Emphysematous changes. IMPRESSION: No significant cervical vertebral abnormalities post trauma.
[2024-01-02] MEDS: DIPH,PERTUS(ACELL)TETVAC-LF 0.5 ML VIAL IM ONE (00:39)
[2024-01-02] MEDS: TOPICAL SKIN ADHESIVE 1 EACH AMP TOPICAL ONE (00:42)
[2024-01-02 00:58] VITALS: BP 159/69; PULSE 69
== END 2024-01-02 00:59 | disposition home or self-care (01) ==
LOC: EC 20:59
DX: S40.912A Unspecified superficial injury of left shoulder, initial encounter
CPT/HCPCS: 12001; 70450; 72125; 90471; 90715; 99284

== ENCOUNTER → 2024-02-29 | Outpatient (CLI) | payer MEDICARE ==
[2024-02-29 10:10] LABS: HCT 42.9 % (37.2-46.3); HGB 14.2 g/dL (12.0-15.0); MCH 32.7 pg (27.0-32.0); MCHC 33.1 g/dL (32.0-37.0); MCV 98.8 FL (80.0-97.0); Mean Platelet Volume 9.7 FL (9.5-12.2); NRBC Per 100 WBC 0 X 10*3/uL (0.00-0.01); Platelet Count 228 X 10*3/uL (140-440); RBC 4.34 X 10*6/uL (4.10-5.20); RDW 12.9 % (11.5-14.5); WBC 6.13 X 10*3/uL (4.50-10.00)
[2024-02-29 10:31] LABS: ALT 23 U/L (8-44); AST 22 U/L (13-35); Albumin 4.4 g/dL (3.8-4.9); Alkaline Phosphatase 69 U/L (41-126); BUN/Creat Ratio 20.18 Ratio (12.00-20.00); Blood Urea Nitrogen 22.2 mg/dL (9.0-27.0); Carbon Dioxide 27.1 mmol/L (21.6-31.8); Chloride 106 mmol/L (96-109); Chol/HDL Ratio 2.54 Ratio; Globulin 2.2 g/dL (1.6-3.3); Glucose 108 mg/dL (70-110); Potassium 4.5 mmol/L (3.5-5.5); Sodium 144 mmol/L (135-145); T4, Free (Free Thyroxine) 1.18 ng/dL (0.80-1.80); Total Bilirubin 0.6 mg/dL (0.3-1.2); Total Protein 6.6 g/dL (6.2-8.2); VLDL Calculation 17.34 mg/dL (5.00-40.00)
== END | disposition home or self-care (01) ==
LOC: LABWHC1 07:09
PROVIDERS: ATTEND Family Medicine
DX: Z00.01 Encounter for general adult medical examination with abnormal findings (principal); E03.9 Hypothyroidism, unspecified; R53.83 Other fatigue; E66.3 Overweight
CPT/HCPCS: 36415; 80053; 80061; 84439; 84443; 84481; 85027

== ENCOUNTER → 2024-03-27 | Outpatient (CLI) | payer MEDICARE ==
[2024-03-27 10:26] LABS: ALT 26 U/L (8-44); AST 25 U/L (13-35); Albumin 4.4 g/dL (3.8-4.9); Alkaline Phosphatase 68 U/L (41-126); Blood Urea Nitrogen 19.2 mg/dL (9.0-27.0); Carbon Dioxide 27.7 mmol/L (21.6-31.8); Chloride 106 mmol/L (96-109); Chol/HDL Ratio 2.78 Ratio; Globulin 2.2 g/dL (1.6-3.3); Glucose 108 mg/dL (70-110); LDL Cholesterol,Calculated 68.6 mg/dL (0.0-131.0); Potassium 4.7 mmol/L (3.5-5.5); Sodium 144 mmol/L (135-145); Total Bilirubin 0.7 mg/dL (0.3-1.2); Total Protein 6.6 g/dL (6.2-8.2); VLDL Calculation 17.88 mg/dL (5.00-40.00)
== END | disposition home or self-care (01) ==
LOC: LABWHC1 07:09
PROVIDERS: ATTEND Internal Medicine Interventional Cardiology
DX: E78.2 Mixed hyperlipidemia (principal)
CPT/HCPCS: 36415; 80053; 80061